=== PATIENT | female | born 1955 | race Caucasian/White ===

== ENCOUNTER 2019-06-17 08:10 | Emergency (ER) | payer BC ==
[~2019-06-17] VITALS: Ht 162.6 cm; Wt 59.0 kg
[2019-06-17 08:10] VITALS: BP_SYST 152
[2019-06-17] MEDS ORDERED: DIPH-TET-PERTUS Vaccine 0.5 ML VIAL (ADACEL) I.M. ONE (08:30)
[2019-06-17] MEDS ORDERED: LIDOCAINE 1% 10 MG/ML, 20 ML MDV INJ ONE (08:30)
[2019-06-17 11:09] VITALS: BP_SYST 152
== END 2019-06-17 11:09 | disposition home or self-care (01) ==
LOC: SED 08:10
DX: S61.411A Laceration without foreign body of right hand, initial encounter (principal); F41.9 Anxiety disorder, unspecified; E78.00 Pure hypercholesterolemia, unspecified; I10 Essential (primary) hypertension; W25.XXXA Contact with sharp glass, initial encounter; Y93.89 Activity, other specified; Y92.89 Other specified places as the place of occurrence of the external cause; Y99.8 Other external cause status
CPT/HCPCS: 12002; 90471; 90715; 99283; J2001